=== PATIENT | male | born 1975 | race Caucasian/White ===

== ENCOUNTER 2017-11-02 10:16 | Emergency (ER) | payer OTHER ==
[~2017-11-02] VITALS: Ht 177.8 cm; Wt 83.5 kg
[2017-11-02 10:29] VITALS: Ht 177.8 cm; Wt 83.5 kg
[2017-11-02 12:34] VITALS: BP 119/81
== END 2017-11-02 12:34 | disposition home or self-care (01) ==
LOC: ED 10:16
DX: T15.01XA Foreign body in cornea, right eye, initial encounter (principal); W20.8XXA Other cause of strike by thrown, projected or falling object, initial encounter; Y93.89 Activity, other specified; Y99.8 Other external cause status; Y92.89 Other specified places as the place of occurrence of the external cause
CPT/HCPCS: 90715